=== PATIENT | male | born 1995 | race Caucasian/White ===

== ENCOUNTER 2019-01-30 22:25 | Emergency (ER) | payer BC ==
--- NOTE | 2019-01-30 22:44 | EDM.PDOC ---
ED HPI GENERAL MEDICAL PROBLEM - General Chief Complaint: Lower Extremity Injury/Pain Stated Complaint: LT FOOT INJURY Time Seen by Provider: 01/30/19 22:25 Source of Information: Reports: Patient, Family History Limitations: Reports: No Limitations - History of Present Illness INITIAL COMMENTS - FREE TEXT/NARRATIVE: 23 y.o.w.m came wit his mom to the a few hours after he injured his left heal during a sports game. Pt has pain at his left heal when he applies weight onto it. Pt arrived with crutches to ED. 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 No open. No other acute med issues. BP 128/57 Pulse ox 98% on TRA RR 19 Temp 36.4 Pulse 92 Onset Date: 01/30/19 Onset Time: 16:00 Duration: Hour(s):, Intermittent Location: Reports: Lower Extremity, Left (calcaneous) Quality: Reports: Ache, Burning Severity: Mild Improves with: Reports: Rest Worsens with: Reports: Movement Context: Reports: Trauma Associated Symptoms: Reports: No Other Symptoms Left foot Pain Score (Numeric/FACES): 6 - Related Data Allergies Allergy/AdvReac Type Severity Reaction Status Date / Time latex Allergy Rash Verified 01/30/19 22:41 Sulfa (Sulfonamide Allergy Other Verified 01/30/19 22:41 Antibiotics) Home Meds: Home Meds Montelukast [Singulair] 10 mg PO DAILY 01/30/19 [History] Past Medical History HEENT History: Reports: Impaired Vision - Past Surgical History HEENT Surgical History: Reports: Tonsillectomy GI Surgical History: Reports: Appendectomy Review of Systems - Review of Systems Review Of Systems: See Below Constitutional: Reports: No Symptoms Eyes: Reports: No Symptoms Ears: Reports: No Symptoms Nose: Reports: No Symptoms Mouth/Throat: Reports: No Symptoms Respiratory: Reports: No Symptoms Cardiovascular: Reports: No Symptoms GI/Abdominal: Reports: No Symptoms Genitourinary: Reports: No Symptoms Musculoskeletal: Reports: Foot Pain (calcaneous) Skin: Reports: No Symptoms Neurological: Reports: No Symptoms Psychiatric: Reports: No Symptoms ED EXAM, GENERAL - Physical Exam Exam: See Below Exam Limited By: No Limitations General Appearance: Alert, WD/WN, Mild Distress Eye Exam: Bilateral Eye: Normal Inspection Ears: Normal External Exam Ear Exam: Bilateral Ear: Auricle Normal Nose: Normal Inspection, Normal Mucosa Throat/Mouth: Normal Inspection, Normal Lips, Normal Teeth, Normal Gums, Normal Voice, No Airway Compromise Head: Atraumatic, Normocephalic Neck: Normal Inspection, Supple, Non-Tender, Full Range of Motion Respiratory/Chest: No Respiratory Distress, Lungs Clear, Normal Breath Sounds, Chest Non-Tender Cardiovascular: Normal Peripheral Pulses, Regular Rate, Rhythm, No Edema, No Gallop, No Murmur GI/Abdominal: Normal Bowel Sounds, Soft, Non-Tender, No Organomegaly, No Mass, Pelvis Stable (Male) Exam: Deferred Rectal (Males) Exam: Deferred Back Exam: Normal Inspection, Full Range of Motion Extremities: Normal Inspection, Normal Range of Motion, Non-Tender Neurological: Alert, Oriented, CN II-XII Intact, Normal Cognition, Normal Gait Psychiatric: Normal Affect, Normal Mood Skin Exam: Warm, Dry, Intact, Normal Color, No Rash Lymphatic: No Adenopathy Course - Vital Signs Text/Narrative:: 23 y.o.w.m came wit his mom to the a few hours after he injured his left heal during a sports game. Pt has pain at his left heal when he applies weight onto it. Pt arrived with crutches to ED. 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 No open. No other acute med issues. BP 128/57 Pulse ox 98% on TRA RR 19 Temp 36.4 Pulse 92 PE: WNWD W M with left heal pain Imaging: Left foot: NAD, official report is pending Impression: Heal sprain Tx: ICE, refused pain meds Reexam: Improved Plan: D?C with instructions Last Recorded V/S: Last Vital Signs Temp 36.9 C 01/30/19 23:22 Pulse 72 01/30/19 23:22 Resp 18 01/30/19 23:22 BP 118/65 01/30/19 23:22 Pulse Ox 99 01/30/19 23:22 - Orders/Labs/Meds Orders: Active Orders 24 hr Category Date Time Status Foot Comp Min 3V Lt [CR] Stat Exams 01/30/19 22:44 Taken Departure - Departure Time of Disposition: 23:16 Disposition: Home, Self-Care 01 Condition: Good Clinical Impression: Foot pain, left - Discharge Information Instructions: Foot Sprain Referrals: PCP,Not In Area [Primary Care Provider] - Forms: ED Department Discharge Additional Instructions: Ice, Rest and elevation, Motrin for pain, please f/u, please come back if your symptoms get worse acutely. - My Orders Last 24 Hours: My Active Orders 01/30/19 22:44 Foot Comp Min 3V Lt [CR] Stat - Assessment/Plan Last 24 Hours: My Active Orders 01/30/19 22:44 Foot Comp Min 3V Lt [CR] Stat
--- NOTE | 2019-02-02 13:49 | CR ---
INDICATION: Left heel pain, landed on heel. LEFT FOOT: Four views of the left foot were obtained, including a posterior tangential view of the calcaneus and revealed no evidence of a fracture, dislocation, or other significant bone or joint abnormality. MTDD
== END 2019-01-30 23:26 | disposition home or self-care (01) ==
LOC: FB.ED 22:25
DX: S93.602A Unspecified sprain of left foot, initial encounter (principal); Z79.899 Other long term (current) drug therapy; Z91.040 Latex allergy status; Z88.2 Allergy status to sulfonamides; X58.XXXA Exposure to other specified factors, initial encounter
CPT/HCPCS: 73630-LT; 99283-25